=== PATIENT | female | born 1980 | race Caucasian/White ===

== ENCOUNTER 2020-09-25 14:02 | Outpatient (RCR) | payer OTHER, SELFPAY ==
--- NOTE | 2020-09-25 15:09 | PTOPEVAL ---
PHYSICAL THERAPY EVALUATION Thank you for referring Sera Hernandez to [facility].? Corrective Eply maneuver was perform for + R Cristo Hallpike with good correction. I will follow up with Sera via phone next week. If any further treatment is needed I will formulate a plan of care and forward it to you for signature as well as schedule further appointments. Please review, sign, date and return this evaluation KURT. I agree with and certify that the following plan of care is medically necessary. Referring Physician Date Admitting Provider: Attending Provider: Ghada Simmons, ANP Referring Provider: *PT Outpatient Evaluation Start: 09/25/20 14:14 Freq: Status: Active Protocol: Document 09/25/20 14:14 ADAM (Rec: 09/25/20 15:09 ADAM [id number]) Therapy Assessment Status Assessment Status Assessment Status Evaluation Outpatient Past Medical History Past Medical History Source of Past Medical History Patient Neurological History Hx Migraine Yes Gastrointestinal History Hx Appendectomy Yes: 2013 Genitourinary History Hx Kidney Stones Yes Evaluation Information Problem Diagnosis vertigo Onset several weeks Subjective Information Always R ear - always spins to Query Text:As Reported By Patient/ the R. Rolling over in bed, Family looking down, getting up are what elicits symptoms. Woke up 1 morning - nausea, vomiting, very dizziness - Meclazine didn't really help - but would knock her out. 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 Home Meds Must Be Re-entered With Each Visit. Comments Additional Prior Level of Function recreation - walking, jogging, Comments playing with children, being outdoors Pain Assessment Timing of Pain Assessment Timing of Pain Assessment Assessment Self Report Self Report Pain Level 0 Pain Score Pain Score 0: Self Report Vestibular Evaluation Vestibular Medical Information Past Vestibular History Headaches,Sinus/Allergy Issues Recent Symptoms Difficulty Reading,Headaches, Nausea/Vomiting Onset of Symptoms couple of weeks ago - rolling over in bed - feels symptoms
--- NOTE | 2020-09-30 14:59 | PCPTNOTE ---
Follow up phone call made to Sera. She is doing well - on a couple of occasions will have a few seconds of dizziness with quick head turns but then the sensation goes away. No other instances of dizziness. No need for further PT follow up.
== END 2020-11-16 14:59 | disposition home or self-care (01) ==
LOC: ANHHIPT 14:02
PROVIDERS: PCP Physician Assistant Medical; Visit Provider Physician Assistant Medical
DX: R42 Dizziness and giddiness (principal)
CPT/HCPCS: 97161

== ENCOUNTER → 2021-05-28 02:36 | Outpatient (CLI) | payer OTHER, SELFPAY ==
[2021-05-28 17:20] LABS: SARS-CoV-2 RNA PCR Negative
== END ==
PROVIDERS: PCP Internal Medicine; Visit Provider Surgery
DX: Z01.812 Encounter for preprocedural laboratory examination (principal); Z20.822 Contact with and (suspected) exposure to COVID-19
CPT/HCPCS: C9803; U0003; U0005

== ENCOUNTER 2021-05-28 08:21 | Outpatient (CLI) | payer OTHER, SELFPAY | END 2021-05-28 08:22 | disposition home or self-care (01) | LOC: ANHSURGERY 08:24 | PROVIDERS: PCP Internal Medicine; Visit Provider Surgery | DX: Z01.812 Encounter for preprocedural laboratory examination (principal) | CPT/HCPCS: 36415; 86850; 86900; 86901 ==

== ENCOUNTER 2021-05-31 01:17 | Day surgery (SDC) | payer OTHER, SELFPAY ==
[2021-05-26 09:59] VITALS: BMI 22.8
[2021-05-31] VITALS (13 sets, daily range): BP systolic 114–139; BP diastolic 60–87; PULSE 70–99; RESP 14–20; TEMP 36.1–36.5; O2SAT 94–100
[2021-05-31] MEDS: ACETAMINOPHEN 500 MG TABLET 1000 MG PO (10:08)
[2021-05-31] MEDS: LACTATED RINGERS 1,000 ML 30 ML IV CONT ×3 (10:30→15:33)
[2021-05-31] MEDS: KETOROLAC 15 MG/ML VIAL (*BKC) IV PUSH ×2 (10:35→15:18)
--- NOTE | 2021-05-31 11:08 | WPDANESEPPF ---
Anes - Initial Pre Proc Eval Procedure: Operation Date: 05/31/21 12:00 Proposed Procedures p Laparoscopic Umbilical Hernia Repair with Mesh - Timothy Dudley MD Date/Time: 05/31/21 11:08 Surgeon: Timothy Dudley MD Pre Op Diagnosis: umbilical hernia Patient Data Age: 40 Gender: F Height: 1.7 m Weight: 67.3 kg Last Vital Signs Temp 36.5 C 05/31/21 10:11 Pulse 85 05/31/21 10:11 Resp 20 05/31/21 10:11 BP 129/81 05/31/21 10:11 Pulse Ox 100 05/31/21 10:11 Allergies Allergy/AdvReac Type Severity Reaction Status Date / Time No Known Allergies Allergy Unverified 05/31/21 10:07 Home Medications Medication Instructions Recorded Confirmed Type acetaminophen 325 mg tablet 325 mg PO Q6H PRN 05/03/21 05/26/21 History sertraline 50 mg tablet 50 mg PO DAILY 05/03/21 05/31/21 History Patient hx anesthesia problems: none Family hx anesthesia problems: none [facility] Past Medical History Medical History (Updated 05/31/21 @ 11:06 by Jhony Shankar DO) Anxiety Depression Kidney stone Surgical History Surgical History (Updated 05/04/21 @ 10:38 by Iliana Mejia) History of appendectomy Family History Family History Father Hypertension COPD (chronic obstructive pulmonary disease) Emphysema lung Lung cancer Mother Breast cancer Carcinoma of colon Daughter Kidney stone RSV (respiratory syncytial virus infection) Social History Social History (Updated 05/31/21 @ 11:08 by Jhony Shankar DO) Smoking status: Never smoker Alcohol intake: current Alcohol use details: 2 drinks/day Substance use: never Living arrangements: with family 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 Gender identity (if verbalized by the patient): Female Sexual Orientation (if Verbalized by the Patient): Straight or Heterosexual Spiritual care concerns: No Anes - Eval Final PreProcedure Day of Procedure 05/31/21 11:08 Patient weight: normal Heart: regular rate and rhythm Lungs: clear to auscultation and normal air movement Airway: Mallampati scale class II Neurological: alert and oriented Last oral intake: >/= 8 hours ASA classification: III Emergent: no Anesthetic plan: proceed Anesthesia type and monitoring: general ETT and standard monitoring Informed Consent: The patient's anesthetic plan and its attendant risks and benefits were discussed with the patient/family/POA. Questions were solicited and answers provided to the satisfaction of the patient/family/POA.
--- NOTE | 2021-05-31 12:00 | WPDHPUPDATE1 ---
History and Physical Update Update Date/Time: 05/31/21 12:00 History and Physical has been reviewed, including an updated exam of the patient. There are NO changes in the patient's condition. Risks, benefits, and alternatives have been discussed and questions answered. Patient agrees to proceed with procedure.
[2021-05-31] MEDS: ceFAZolin 2 GM/D5W 50 ML 2 GM/50 ML BAG IVPB (12:09)
[2021-05-31] MEDS: BUPIVACAINE/EPINEPHRINE 0.5% 30 ML VIAL INFILTRATE (12:29)
[2021-05-31] MEDS: fentaNYL CITRATE INJ (*CRX) 100 MCG/2 ML VIAL 25 MCG IV PUSH ×8 (14:34→15:07)
--- NOTE | 2021-05-31 14:39 | W.PM.PROC2 ---
Procedure Note - Detailed Date of Procedure 05/31/21 Pre-op Diagnosis umbilical hernia Post-op Diagnosis other (2. small epigastric hernia) Procedure Performed Laparoscopic umbilical and epigastric hernia repair with mesh Surgeon Timothy Dudley MD Grooving Lathe Tender BORIS Hidalgo OR clinic office assistant Anesthesia general Indications Patient had bulging at her umbilicus and some somewhat above the umbilicus in the midline. This was causing her pain as she tried exercise. Findings There was both a umbilical defect and a small epigastric defect about 2 cm above the umbilicus. Description of Procedure DESCRIPTION OF PROCEDURE: The patient was placed in the supine position on the operative table and after induction of adequate general endotracheal anesthesia by [facility]est[facility], the entire abdomen was prepped and draped in usual sterile fashion and the head placed slightly up. An Ioban drape was used to prevent contact of the mesh with the skin during this clean case. Following this, local anesthetic was placed and a spot selected about two fingerbreadths below the costal margin on the left and a small incision made after instilling local anesthetic using 0.25% Marcaine with epinephrine. Following this, a Veress needle technique using the water drop test was completed. Using 2 towel clips on the skin, I carefully elevated the skin and then passed the Veress needle into the abdomen and we could see that the saline droped through the Veress needle easily. CO2 gas was connected and the abdomen was insufflated to 14 mm Hg pressure. Following this, the 0 degree 5 mm laparoscope was placed inside a 5 mm trocar, which was carefully twisted into the abdomen without difficulty, seeing a open pneumoperitoneum as we entered. Thus, the trocar was removed, the sleeve confirmed to be nicely within the abdomen, and we carefully inspected the anterior abdomen. Careful inspection of the abdomen revealed no inguinal hernias. A small defect in the umbilicus that was actually difficult to see initially, but after placing a 12 mm port in the left lower quadrant under direct vision with the laparoscope, we could see up into a 10 mm defect that had been measured then with an instrument with a known cm marker. There was no incarceration of any omentum or any other adhesions to the underside of the umbilicus. There was fat from the urachus coming up into the area which might inhibit the tacks that I was planning to place through the mesh; therefore, this was taken down with Bovie cautery there was also at along the midline extending up to the falciform ligament. I also took this down and removed that preperitoneal fat. This fat was removed through the 12 mm port in the left lower quadrant sent for pathology as preperitoneal fat and hernia sac. We had a little bleeding from this, and lost about 5 mL of blood. This was nicely cauterized and then moved out of the way. This was pre-peritoneal fat and it was removed from the abdomen and passed off the field as specimen. Following this, we carefully planned by measuring the defect. Our mesh, a 15 X 10.5 cm oval piece of Ventra-light mesh was chosen, so that we would have 4.5cm of overlap in all directions over the circular umbilical defect. On either side of the 2 fascial defects I passed a #1 Vicryl at the epigastric level and an 0 Vicryl at the umbilical level using a suture Passer and then tied these pulling the midline fascia together. Following this, the ventra-light balloon hernia system mesh was rolled and this was inserted through the LLQ 12 mm port after rolling it to protect the absorbable covering on the downside of the mesh. A black silk suture was placed through the blue system a loop that is used to extract the tubing for the balloon positioning system such that I could grab this and pull it up through the umbilical area with the suture Passer. I used the suture passer after making a small opening with an 11 blade
--- NOTE | 2021-05-31 15:03 | SUR.PHASEI ---
PT GIVEN GLASSES PER REQUEST
[2021-05-31] MEDS: HYDROmorphone HCL INJ (*CRX) 1 MG/ML SYR 0.5 MG IV PUSH ×4 (15:11→15:42)
--- NOTE | 2021-05-31 15:19 | SUR.PHASEI ---
1515; DR CAMEJO IN PACU. PT AWAKE, DROWSY, C/O PAIN STILL 08/29. FENTANYL AND DILAUDID GIVEN. DR CAMEJO ORDERED A REPEAT DOSE OF TORADOL 15MG IV
--- NOTE | 2021-05-31 15:37 | SUR.PHASEI ---
PT ABLE TO DOZE IN SHORT INTERVALS. NO LONGER MOANING OR GRIMACING. WHEN ASKED HOW PAIN IS PT STATES ITS NO BETTER, STILL A 10/10 DR CAMEJO AT BEDSIDE
--- NOTE | 2021-05-31 16:01 | SUR.PHASEI ---
pt asking for a drink.
[2021-05-31] MEDS: ONDANSETRON INJ 4 MG/2 ML VIAL IV PUSH (16:15)
[2021-05-31] MEDS: diphenhydrAMINE HCl INJ 50 MG/ML VIAL 25 MG IV PUSH (17:09)
[2021-05-31] MEDS: SCOPOLAMINE 1.5 MG PATCH TRANSDERM (17:10)
== END 2021-05-31 18:00 | disposition home or self-care (01) ==
PROVIDERS: PCP Internal Medicine; Visit Provider Surgery
PROC: (CPT 49652; principal; 2021-05-31 12:00)
DX: K42.9 Umbilical hernia without obstruction or gangrene (principal); K43.9 Ventral hernia without obstruction or gangrene; F32.9 Major depressive disorder, single episode, unspecified; Z90.49 Acquired absence of other specified parts of digestive tract
CPT/HCPCS: 49652; 36415; 86850; 86900; 86901; 88300; 88302; A9270; C1781; C9803; J0330; J0690; J1100; J1170; J1200; J1885; J2250; J2405; J2704; J2710; J3010; J7120; U0003; U0005